=== PATIENT | male | born 2000 | race Caucasian/White ===

== ENCOUNTER 2020-08-05 14:33 | Emergency (ER) | payer BC ==
[2020-08-05] MEDS ORDERED: diphenhydrAMINE 50 MG/ML VIAL ONE (14:47)
[2020-08-05] MEDS ORDERED: Dexamethasone 4 MG TAB ONE (15:02)
== END 2020-08-05 15:09 | disposition home or self-care (01) ==
LOC: BURERS 14:33
DX: J30.2 Other seasonal allergic rhinitis (principal)
CPT/HCPCS: 96372; 99281; J1200; J8540